=== PATIENT | female | born 1965 | race Caucasian/White ===

== ENCOUNTER 2020-01-03 11:55 | Emergency (ER) | payer BC ==
[2020-01-03 12:10] VITALS: BP 146/85; PULSE 81
[2020-01-03] MEDS ORDERED: Sodium Chloride 0.9% 10 ML Syringe FLUSH PRN (12:18)
--- NOTE | 2020-01-03 12:27 | EDM.PDOC ---
ED HPI GENERAL MEDICAL PROBLEM - General Chief Complaint: Chest Pain Stated Complaint: CHEST PAINS-COVID POSITIVE Time Seen by Provider: 01/03/20 12:10 Source of Information: Reports: Patient, Old Records, RN, RN Notes Reviewed History Limitations: Reports: No Limitations - History of Present Illness INITIAL COMMENTS - FREE TEXT/NARRATIVE: 54 y.o female confirmed COVID positive in clinic last week now presents to the ER from home by POV with c/o upper chest pain & burning that began two days ago. Pt states the pain is located at the upper central chest and is intermittent in nature. The pain radiates to the upper back and she also has the sensation of pain and burning in the lungs. She has a productive cough with green/yellow sputum. Pt reports she has had similar chest pain before from bronchitis. She has been using her Albuterol inhaler some, and taking Tylenol for pain. 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 Chest Pain Score (Numeric/FACES): 8 - Related Data Allergies Allergy/AdvReac Type Severity Reaction Status Date / Time amoxicillin [Amoxicillin] Allergy Hives Verified 01/03/20 12:10 amoxicillin trihydrate Allergy Hives Verified 01/03/20 12:10 [From Augmentin] hydrocodone bitartrate Allergy Hives Verified 01/03/20 12:10 [From Lorcet 10] Latex, Natural Rubber Allergy Difficulty Verified 01/03/20 12:10 Breathing potassium clavulanate Allergy Hives Verified 01/03/20 12:10 [From Augmentin] Sulfa (Sulfonamide Allergy Hives Verified 01/03/20 12:10 Antibiotics) sumatriptan [From Imitrex] Allergy Cannot Verified 01/03/20 12:10 Remember sumatriptan succinate Allergy Cannot Verified 01/03/20 12:10 [From Imitrex] Remember plastic tape Allergy Blisters Uncoded 01/03/20 12:10 Home Meds: Home Meds Loratadine [Claritin] 10 mg PO DAILY 05/28/13 [History] metFORMIN [Glucophage] 500 mg PO QID 05/28/13 [History] Ascorbic Acid [Vitamin C] 1,000 mg PO DAILY 07/18/14 [History] Aspirin [[place] Aspirin] 81 mg PO DAILY 07/18/14 [History] Calcium Carb/D3/Magnesium/Zinc [Wwnnauh-Iad-Xbju-Vit D] 1 tab PO DAILY 07/18/14 [History] Losartan [Cozaar] 25 mg PO BID 05/30/16 [History] Albuterol Sulfate [Albuterol Sulfate Hfa] 2 puff IH Q4HR PRN 01/03/20 [History] Betamethasone/Clotrimazole [Lotrisone] 15 gm TOP BID 01/03/20 [History] Cyclobenzaprine [Flexeril] 10 mg PO Q8HR PRN 01/03/20 [History] Magnesium Oxide [Mag-Oxide] 241.3 mg PO DAILY 01/03/20 [History] Omeprazole Magnesium [Prilosec Otc] 20 mg PO DAILY 01/03/20 [History] Rosuvastatin [Crestor] 2.5 mg PO ASDIRECTED 01/03/20 [History] Tolterodine [Detrol] 2 mg PO BID 01/03/20 [History] sitaGLIPtin Phosphate [Januvia] 50 mg PO DAILY 01/03/20 [History] Past Medical History HEENT History: Reports: Cataract Cardiovascular History: Reports: High Cholesterol, Hypertension Respiratory History: Reports: Asthma, Bronchitis, Recurrent, COPD Gastrointestinal History: Reports: Diverticulosis, Hemorrhoids, Hiatal Hernia Genitourinary History: Reports: Other (See Below) Other Genitourinary History: Status post microscopic hematuria. Bladder sling repair Neurological History: Reports: Migraines Psychiatric History: Reports: Anxiety Endocrine/Metabolic History: Reports: Diabetes, Type II, Obesity/BMI 30+ Hematologic History: Reports: None Immunologic History: Reports: None Oncologic (Cancer) History: Reports: None Other Dermatologic History: allergy to plastic tape - Infectious Disease History Infectious Disease History: Reports: Chicken Pox - Past Surgical History HEENT Surgical History: Reports: Tonsillectomy Other HEENT Surgeries/Procedures: closed reduction nasal fx. Cardiovascular Surgical History: Reports: None Respiratory Surgical History: Reports: None GI Surgical History: Reports: Appendectomy, Cholecystectomy Female Surgical History: Reports: Section, Other (See Below) Musculoskeletal Surgical History: Reports: Arthroscopic Knee, Shoulder Surgery Social & Family History - Family History Family Medical History: Noncontributory - Tobacco Use Smoking Status *Q: Never Smoker Second Hand Smoke Exposure: No - Caffeine Use Caffeine Use: Reports: Soda Other Caffeine Use: one every other day - Recreational Drug Use Recreational Drug Use: No - Living Situation & Occupation Living situation: Reports: with Family Occupation: Employed ED ROS GENERAL - Review of Systems Review Of Systems: Comprehensive ROS is negative, except as noted in HPI. ED EXAM, GENERAL - Physical Exam Exam: See Below Exam Limited By: No Limitations General Appearance: Alert, No Apparent Distress, Obese Eye Exam: Bilateral Eye: Normal Inspection Ears: Normal External Exam, Normal Canal, Hearing Grossly Normal, Normal TMs Nose: Normal Inspection, Normal Mucosa, No Blood Throat/Mouth: Normal Lips, Normal Voice, No Airway Compromise, Other (Dry oral mucosa) Head: Atraumatic, Normocephalic Neck: Normal Inspection, Supple, Non-Tender, Full Range of Motion Respiratory/Chest: No Respiratory Distress, Lungs Clear, Normal Breath Sounds, No Accessory Muscle Use, Chest Non-Tender Cardiovascular: Regular Rate, Rhythm, Tachycardia GI/Abdominal: Normal Bowel Sounds, Soft, Non-Tender, Other (Benign obese abdomen) (Female) Exam: Deferred Rectal (Female) Exam: Deferred Back Exam: Normal Inspection Extremities: Normal Inspection Neurological: Alert, Oriented, No Motor/Sensory Deficits Psychiatric: Normal Mood Skin Exam: Warm, Dry, Intact, Normal Color, No Rash EKG INTERPRETATION EKG Date: 01/03/20 Time: 12:35 Rhythm: Other (SR) Rate (Beats/Min): 74 Novice: Normal P-Wave: Present QRS: Other (Early R/S transition, LVH) ST-T: Normal QT: Normal Comparison: NA - No Prior EKG Course - Vital Signs Last Recorded V/S: Last Vital Signs Temp 98.3 F 01/03/20 12:06 Pulse 81 01/03/20 12:06 Resp 18 01/03/20 12:06 BP 146/85 H 01/03/20 12:06 Pulse Ox 99 01/03/20 12:06 - Orders/Labs/Meds Orders: Active Orders 24 hr Category Date Time Status EKG 12 Lead [EKG Documentation Completion] [RC] STAT Care 01/03/20 12:07 Active Peripheral IV Care [RC] . DIRECTED Care 01/03/20 12:19 Active Chest wo Cont [CT] Urgent Exams 01/03/20 13:35 Ordered CULTURE BLOOD [BC] Stat Lab 01/03/20 12:28 Received Sodium Chloride 0.9% [Saline Flush] Med 01/03/20 12:18 Active 10 ml FLUSH ASDIRECTED PRN Peripheral IV Insertion Adult [OM.PC] Stat Oth 01/03/20 12:18 Ordered Medication Orders Sodium Chloride (Saline Flush) 10 ml FLUSH ASDIRECTED PRN PRN Reason: Keep Vein Open Last Admin: 01/03/20 12:30 Dose: 10 ml Documented by: HILARY Labs: Laboratory Tests 01/03/20 01/03/20 01/03/20 Range/Units 12:28 12:28 12:28 WBC 5.1 (5.0-10.0) 10^3/uL RBC 4.40 (4.2-5.4) 10^6/uL Hgb 13.0 D (12.0-16.0) g/dL Hct 38.9 (37.0-47.0) % MCV 88.4 (80-100) fL MCH 29.5 (27.0-34.0) pg MCHC 33.4 (33.0-35.0) g/dL Plt Count 143 L (150-450) 10^3/uL Neut % (Auto) 59.3 (42.2-75.2) % Lymph % (Auto) 30.0 (20.5-50.1) % [place] % (Auto) 8.1 H (2-8) % Eos % (Auto) 2.4 (1.0-3.0) % Baso % (Auto) 0.2 (0.0-1.0) % PT 9.9 (9.0-12.0) SEC INR 1.0 (0.9-1.2) APTT 25.7 (22.0-34.0) SEC D-Dimer, Quantitative 107 (0-400) ng/mL Sodium 140 (136-145) mmol/L Potassium 4.0 (3.5-5.1) mmol/L Chloride 104 (98-107) mmol/L Carbon Dioxide 25 (21-32) mmol/L Anion Gap 15.0 H (7-13) mEq/L BUN 19 H (7-18) mg/dL Creatinine 0.98 (0.55-1.02) mg/dL Est Cr Clr Drug Dosing 56.01 mL/min Estimated GFR (MDRD) 59 BUN/Creatinine Ratio 19.4 (No establ ref range) Glucose 152 H (74-99) mg/dL Lactic Acid (0.4-2.0) mmol/L Calcium 9.0 (8.5-10.1) mg/dL Total Bilirubin 0.4 (0.2-1.0) mg/dL AST 30 (15-37) U/L ALT 46 (14-59) U/L Alkaline Phosphatase 75 (46-116) U/L Troponin I < 0.017 (0.000-0.056) ng/mL Total Protein 7.9 (6.4-8.2) g/dL Albumin 3.9 (3.4-5.0) g/dL Globulin 4.0 Albumin/Globulin Ratio 1.0 09/08/20 Range/Units 12:28 WBC (5.0-10.0) 10^3/uL RBC (4.2-5.4) 10^6/uL Hgb (12.0-16.0) g/dL Hct (37.0-47.0) % MCV (80-100) fL MCH (27.0-34.0) pg MCHC (33.0-35.0) g/dL Plt Count (150-450) 10^3/uL Neut % (Auto) (42.2-75.2) % Lymph % (Auto) (20.5-50.1) % [place] % (Auto) (2-8) % Eos % (Auto) (1.0-3.0) % Baso % (Auto) (0.0-1.0) % PT (9.0-12.0) SEC INR (0.9-1.2) APTT (22.0-34.0) SEC D-Dimer, Quantitative (0-400) ng/mL Sodium (136-145) mmol/L Potassium (3.5-5.1) mmol/L Chloride (98-107) mmol/L Carbon Dioxide (21-32) mmol/L Anion Gap (7-13) mEq/L BUN (7-18) mg/dL Creatinine (0.55-1.02) mg/dL Est Cr Clr Drug Dosing mL/min Estimated GFR (MDRD) BUN/Creatinine Ratio (No establ ref range) Glucose (74-99) mg/dL Lactic Acid 1.8 (0.4-2.0) mmol/L Calcium (8.5-10.1) mg/dL Total Bilirubin (0.2-1.0) mg/dL AST (15-37) U/L ALT (14-59) U/L Alkaline Phosphatase (46-116) U/L Troponin I (0.000-0.056) ng/mL Total Protein (6.4-8.2) g/dL Albumin (3.4-5.0) g/dL Globulin Albumin/Globulin Ratio Meds: Medications Generic Name Dose Route Start Last Admin Trade Name Freq PRN Reason Stop Dose Admin Sodium Chloride 10 ml 01/03/20 12:18 01/03/20 12:30 Saline Flush FLUSH 10 ml ASDIRECTED PRN Administration Keep Vein Open - Radiology Interpretation Free Text/Narrative:: CT Chest: no severe changes associated with COVID, see Rad. report. - Re-Assessments/Exams Free Text/Narrative Re-Assessment/Exam: 01/03/20 14:12 Clinically the pt is tolerating COVID very well, labs and chest CT look remarkably good given her comorbidities. Plan to d/c home for continued symptomatic care. Departure - Departure Time of Disposition: 14:08 Disposition: Home, Self-Care 01 Condition: Good Clinical Impression: COVID-19 - Discharge Information *PRESCRIPTION DRUG MONITORING PROGRAM REVIEWED*: Not Applicable *COPY OF PRESCRIPTION DRUG MONITORING REPORT IN PATIENT ISIDRA: Not Applicable Instructions: COVID-19 Frequently Asked Questions, Prevent the Spread of COVID- 19 if You Are Sick - [facility] Forms: ED Department Discharge Additional Instructions: Self quarantine at home. Symptomatic treatment as needed, Tylenol, Albuterol inhaler, stay active in your house. Call 911 if you develop difficulty breathing. Sepsis Event Note (ED) - Evaluation Sepsis Screening Result: No Definite Risk - Focused Exam Vital Signs: Vital Signs Temp Pulse Resp BP Pulse Ox 01/03/20 12:06 98.3 F 81 18 146/85 H 99 - My Orders Last 24 Hours: My Active Orders 01/03/20 12:07 EKG 12 Lead [EKG Documentation Completion] [RC] STAT 01/03/20 12:18 Sodium Chloride 0.9% [Saline Flush] 10 ml FLUSH ASDIRECTED PRN Peripheral IV Insertion Adult [OM.PC] Stat 01/03/20 12:19 Peripheral IV Care [RC] . DIRECTED 01/03/20 12:28 CULTURE BLOOD [BC] Stat 01/03/20 13:35 Chest wo Cont [CT] Urgent - Assessment/Plan Last 24 Hours: My Active Orders 01/03/20 12:07 EKG 12 Lead [EKG Documentation Completion] [RC] STAT 01/03/20 12:18 Sodium Chloride 0.9% [Saline Flush] 10 ml FLUSH ASDIRECTED PRN Peripheral IV Insertion Adult [OM.PC] Stat 01/03/20 12:19 Peripheral IV Care [RC] . DIRECTED 01/03/20 12:28 CULTURE BLOOD [BC] Stat 01/03/20 13:35 Chest wo Cont [CT] Urgent
[2020-01-03 12:53] LABS: PTT,PARTIAL THROMBOPLSTIN TIME 25.7 SEC (22.0-34.0)
[2020-01-03 12:58] LABS: CHLORIDE,CL 104 mmol/L (98-107); SODIUM,NA 140 mmol/L (136-145)
--- NOTE | 2020-01-03 14:25 | CT ---
PROCEDURE INFORMATION: Exam: CT Chest Without Contrast Exam date and time: 01/03/2020 1:49 PM Age: 54 years old Clinical indication: Other: Covid +, chest pain, productive cough; Additional info: Covid, chest pain, productive cough TECHNIQUE: Imaging protocol: Computed tomography of the chest without contrast. Radiation optimization: All CT scans at this facility use at least one of these dose optimization techniques: automated exposure control; mA and/or kV adjustment per patient size (includes targeted exams where dose is matched to clinical indication); or iterative reconstruction. COMPARISON: CT Chest wo Cont 07/14/2014 2:27 PM FINDINGS: Tracheobronchial tree: Normal. Lungs: Scattered faint subcentimeter foci of ground-glass lung opacification, most easily seen in the left upper lobe but present as well and other lobes sparing the left lower lobe. Pleural space: Normal. Heart: Normal dimensions. No pericardial effusion. Coronary arteries: No calcification Aorta: Normal. Lymph nodes: No enlarged axillary, mediastinal or hilar lymph nodes. Bones/joints: Normal. Soft tissues: Normal. IMPRESSION: Patchy upper lobe dominant ground-glass opacification. Per the history, the patient is known to have tested positive for COVID-19 and these findings can be considered compatible with the associated viral pneumonia.
== END 2020-01-03 14:20 | disposition home or self-care (01) ==
LOC: DL.ED 11:55
DX: U07.1 COVID-19 (principal); R00.0 Tachycardia, unspecified; I10 Essential (primary) hypertension; J44.9 Chronic obstructive pulmonary disease, unspecified; E11.9 Type 2 diabetes mellitus without complications; E66.9 Obesity, unspecified; Z68.41 Body mass index [BMI] 40.0-44.9, adult; Z88.8 Allergy status to other drugs, medicaments and biological substances; Z88.1 Allergy status to other antibiotic agents; Z88.5 Allergy status to narcotic agent; Z91.040 Latex allergy status; Z88.2 Allergy status to sulfonamides; Z91.048 Other nonmedicinal substance allergy status; Z79.82 Long term (current) use of aspirin; Z79.899 Other long term (current) drug therapy
CPT/HCPCS: 36415; 71250; 80053; 83605; 84484; 85025; 85379; 85610; 85730; 87040; 93005; 99285-25

== ENCOUNTER 2020-01-17 10:31 | Emergency (ER) | payer BC ==
[2020-01-17] MEDS ORDERED: Albuterol/Ipratropium 3.0-0.5 MG/3 ML Neb Soln NEB ONE (12:27)
[2020-01-17 12:34] VITALS: PULSE 81
[2020-01-17] MEDS ORDERED: methylPREDNISolone Sodium Succinate 125 MG/2 ML SDV IVPUSH ONE (12:44)
[2020-01-17 13:15] LABS: ANION GAP 17.9 mEq/L (7-13)
--- NOTE | 2020-01-17 13:20 | CR ---
PROCEDURE INFORMATION: Exam: XR Chest, 1 View Exam date and time: 01/17/2020 1:15 PM Age: 54 years old Clinical indication: Chest pain TECHNIQUE: Imaging protocol: XR of the chest Views: 1 view. COMPARISON: CT Chest wo Cont, Chest wo Cont 01/03/2020 1:49 PM FINDINGS: Lungs: No lung consolidation or pulmonary edema. Pleural space: No pleural effusion or pneumothorax. Heart/Mediastinum: The cardiac silhouette is not enlarged. The mediastinal contours are normal. Bones/joints: Prior ORIF of a proximal right humeral fracture with side plate and screws. There are multilevel bridging osteophytes in the spine. IMPRESSION: No acute abnormality.
--- NOTE | 2020-01-17 13:21 | EDM.PDOC ---
ED HPI GENERAL MEDICAL PROBLEM - General Chief Complaint: Respiratory Problem Stated Complaint: pneumonia Time Seen by Provider: 01/17/20 12:50 Source of Information: Reports: Patient, RN, RN Notes Reviewed History Limitations: Reports: No Limitations - History of Present Illness INITIAL COMMENTS - FREE TEXT/NARRATIVE: Patient presents to ER with complaint of shortness of breath and wheezing. Patient was COVID positive on 01/04/2020. She was released from quarantine on 01/14/2020. Patient states she went back to work on Thursday, and worked an extra shift. She states she did see her primary care provider on Thursday. States she was told she had a right lung pneumonia possibly a left lung pneumonia. Patient was started on azithromycin and prednisone, she does have an albuterol inhaler but is unable to take a deep breath to use the inhaler. She states she has become more short of breath since she went back to work. States she has had a cough and positive for green sputum. Denies fever, chills, nausea, vomiting, diarrhea. Oxygen saturation is 96 to 100% on room air. Patient has audible wheezing, sounds to be coming from the oropharynx, as the lung sounds are clear. Onset: Gradual Upper Chest Pain Score (Numeric/FACES): 5 - Related Data Allergies Allergy/AdvReac Type Severity Reaction Status Date / Time amoxicillin [Amoxicillin] Allergy Hives Verified 01/17/20 11:03 amoxicillin trihydrate Allergy Hives Verified 01/17/20 11:03 [From Augmentin] hydrocodone bitartrate Allergy Hives Verified 01/17/20 11:03 [From Lorcet [id number]] Latex, Natural Rubber Allergy Difficulty Verified 01/17/20 11:03 Breathing potassium clavulanate Allergy Hives Verified 01/17/20 11:03 [From Augmentin] Sulfa (Sulfonamide Allergy Hives Verified 01/17/20 11:03 Antibiotics) sumatriptan [From Imitrex] Allergy Cannot Verified 01/17/20 11:03 Remember sumatriptan succinate Allergy Cannot Verified 01/17/20 11:03 [From Imitrex] Remember plastic tape Allergy Blisters Uncoded 01/17/20 11:03 Home Meds: Home Meds Loratadine [Claritin] 10 mg PO DAILY 05/28/13 [History] metFORMIN [Glucophage] 500 mg PO QID 05/28/13 [History] Ascorbic Acid [Vitamin C] 1,000 mg PO DAILY 07/18/14 [History] Aspirin [[place] Aspirin] 81 mg PO DAILY 07/18/14 [History] Calcium Carb/D3/Magnesium/Zinc [Monawgp-Rhb-Bjmd-Vit D] 1 tab PO DAILY 07/18/14 [History] Losartan [Cozaar] 25 mg PO BID 05/30/16 [History] Albuterol Sulfate [Albuterol Sulfate Hfa] 2 puff IH Q4HR PRN 01/03/20 [History] Betamethasone/Clotrimazole [Lotrisone] 15 gm TOP BID 01/03/20 [History] Cyclobenzaprine [Flexeril] 10 mg PO Q8HR PRN 01/03/20 [History] Magnesium Oxide [Mag-Oxide] 241.3 mg PO DAILY 01/03/20 [History] Omeprazole Magnesium [Prilosec Otc] 20 mg PO DAILY 01/03/20 [History] Rosuvastatin [Crestor] 2.5 mg PO ASDIRECTED 01/03/20 [History] Tolterodine [Detrol] 2 mg PO BID 01/03/20 [History] sitaGLIPtin Phosphate [Januvia] 50 mg PO DAILY 01/03/20 [History] Past Medical History HEENT History: Reports: Cataract Cardiovascular History: Reports: High Cholesterol, Hypertension Respiratory History: Reports: Asthma, Bronchitis, Recurrent, COPD Gastrointestinal History: Reports: Diverticulosis, Hemorrhoids, Hiatal Hernia Genitourinary History: Reports: Other (See Below) Other Genitourinary History: Status post microscopic hematuria. Bladder sling repair Neurological History: Reports: Migraines Psychiatric History: Reports: Anxiety Endocrine/Metabolic History: Reports: Diabetes, Type II, Obesity/BMI 30+ Hematologic History: Reports: None Immunologic History: Reports: None Oncologic (Cancer) History: Reports: None Other Dermatologic History: allergy to plastic tape - Infectious Disease History Infectious Disease History: Reports: Chicken Pox - Past Surgical History HEENT Surgical History: Reports: Tonsillectomy Other HEENT Surgeries/Procedures: closed reduction nasal fx. Cardiovascular Surgical History: Reports: None Respiratory Surgical History: Reports: None GI Surgical History: Reports: Appendectomy, Cholecystectomy Female Surgical History: Reports: Section, Other (See Below) Musculoskeletal Surgical History: Reports: Arthroscopic Knee, Shoulder Surgery Social & Family History - Family History Family Medical History: Noncontributory - Tobacco Use Smoking Status *Q: Never Smoker Second Hand Smoke Exposure: No - Caffeine Use Caffeine Use: Reports: None Other Caffeine Use: one every other day - Recreational Drug Use Recreational Drug Use: No - Living Situation & Occupation Living situation: Reports: with Family Occupation: Employed ED ROS GENERAL - Review of Systems Review Of Systems: Comprehensive ROS is negative, except as noted in HPI. ED EXAM, GENERAL - Physical Exam Exam: See Below Exam Limited By: No Limitations General Appearance: Alert, WD/WN, Mild Distress Eye Exam: Bilateral Eye: EOMI, Normal Inspection Ears: Normal External Exam, Hearing Grossly Normal Nose: Normal Inspection Throat/Mouth: Normal Inspection, Normal Lips, Normal Teeth, Normal Gums, Normal Oropharynx, Normal Voice, No Airway Compromise Head: Atraumatic, Normocephalic Neck: Normal Inspection, Supple, Non-Tender, Full Range of Motion Respiratory/Chest: No Respiratory Distress, Lungs Clear, No Accessory Muscle Use, Chest Non-Tender, Decreased Breath Sounds Cardiovascular: Normal Peripheral Pulses, Regular Rate, Rhythm, No Edema, No Gallop, No JVD, No Murmur, No Rub Peripheral Pulses: 2+: Radial (L), Radial (R) GI/Abdominal: Normal Bowel Sounds, Soft, Non-Tender (Female) Exam: Deferred Rectal (Female) Exam: Deferred Back Exam: Normal Inspection, Full Range of Motion, NT Extremities: Normal Inspection, Normal Range of Motion, Non-Tender, Normal Capillary Refill, No Pedal Edema Neurological: Alert, Oriented, CN II-XII Intact, Normal Cognition, Normal Gait, Normal Reflexes, No Motor/Sensory Deficits Psychiatric: Normal Affect, Normal Mood, Anxious Skin Exam: Warm, Dry, Intact, Normal Color, No Rash Lymphatic: No Adenopathy Course - Vital Signs Last Recorded V/S: Last Vital Signs Temp 98.5 F 01/17/20 11:03 Pulse 81 01/17/20 12:28 Resp 20 01/17/20 11:03 BP Pulse Ox 97 01/17/20 12:28 - Orders/Labs/Meds Labs: Laboratory Tests 01/17/20 01/17/20 Range/Units 12:39 12:39 WBC 9.1 (5.0-10.0) 10^3/uL RBC 4.42 (4.2-5.4) 10^6/uL Hgb 12.9 (12.0-16.0) g/dL Hct 38.9 (37.0-47.0) % MCV 88.0 (80-100) fL MCH 29.2 (27.0-34.0) pg MCHC 33.2 (33.0-35.0) g/dL Plt Count 243 D (150-450) 10^3/uL Neut % (Auto) 82.5 H (42.2-75.2) % Lymph % (Auto) 14.4 L (20.5-50.1) % [place] % (Auto) 2.7 (2-8) % Eos % (Auto) 0.2 L (1.0-3.0) % Baso % (Auto) 0.2 (0.0-1.0) % Sodium 140 (136-145) mmol/L Potassium 4.9 (3.5-5.1) mmol/L Chloride 103 (98-107) mmol/L Carbon Dioxide 24 (21-32) mmol/L Anion Gap 17.9 H (7-13) mEq/L BUN 19 H (7-18) mg/dL Creatinine 1.14 H (0.55-1.02) mg/dL Est Cr Clr Drug Dosing 48.15 mL/min Estimated GFR (MDRD) 49 BUN/Creatinine Ratio 16.7 (No establ ref range) Glucose 291 H (74-99) mg/dL Calcium 9.8 (8.5-10.1) mg/dL Total Bilirubin 0.5 (0.2-1.0) mg/dL AST 31 (15-37) U/L ALT 47 (14-59) U/L Alkaline Phosphatase 73 (46-116) U/L Total Protein 7.9 (6.4-8.2) g/dL Albumin 3.9 (3.4-5.0) g/dL Globulin 4.0 Albumin/Globulin Ratio 1.0 Meds: Medications Discontinued Medications Generic Name Dose Route Start Last Admin Trade Name Freq PRN Reason Stop Dose Admin Albuterol/Ipratropium 3 ml 01/17/20 12:27 01/17/20 12:33 Duoneb 3.0-0.5 Mg/3 Ml NEB 01/17/20 12:28 3 ml ONETIME ONE Administration Levofloxacin/Dextrose 500 mg/ 100 mls @ 100 mls/hr 01/17/20 13:42 01/17/20 13:54 Premix IV 01/17/20 14:41 100 mls/hr ONETIME ONE Administration Methylprednisolone Sodium Succinate 125 mg 01/17/20 12:44 01/17/20 13:02 Solu-Medrol IVPUSH 01/17/20 12:45 125 mg ONETIME ONE Administration Departure - Departure Time of Disposition: 15:12 Disposition: Home, Self-Care 01 Condition: Fair Clinical Impression: Pneumonia Qualifiers: Pneumonia type: due to unspecified organism Laterality: unspecified laterality Lung location: unspecified part of lung Qualified Code(s): J18.9 - Pneumonia, unspecified organism - Discharge Information *PRESCRIPTION DRUG MONITORING PROGRAM REVIEWED*: No *COPY OF PRESCRIPTION DRUG MONITORING REPORT IN PATIENT ISIDRA: No Instructions: Shortness of Breath, Adult, [id number], Community-Acquired Pneumonia, Adult, [id number] Referrals: PCP,Unknown [Ordering Only Provider] - Forms: ED Department Discharge Additional Instructions: Continue taking Medrol Dosepak at home Continue taking antibiotics Continue using albuterol inhaler as directed May use Tylenol as directed for pain Follow-up with your primary care provider Rest, do not return to work until next week Sepsis Event Note (ED) - Evaluation Sepsis Screening Result: No Definite Risk
[2020-01-17] MEDS ORDERED: Levofloxacin/Dextrose 5%-Water 500 MG in Premix Bag 1 BAG IV ONE (13:42)
== END 2020-01-17 15:10 | disposition home or self-care (01) ==
LOC: DL.ED 10:31
DX: J18.9 Pneumonia, unspecified organism (principal); J44.9 Chronic obstructive pulmonary disease, unspecified; E78.00 Pure hypercholesterolemia, unspecified; I10 Essential (primary) hypertension; E11.9 Type 2 diabetes mellitus without complications; E66.9 Obesity, unspecified; Z68.43 Body mass index [BMI] 50.0-59.9, adult; Z88.1 Allergy status to other antibiotic agents; Z88.5 Allergy status to narcotic agent; Z91.040 Latex allergy status; Z88.8 Allergy status to other drugs, medicaments and biological substances; Z88.2 Allergy status to sulfonamides; Z91.048 Other nonmedicinal substance allergy status
CPT/HCPCS: 36415; 71045; 80053; 85025; 94640; 96365; 96375; 99283; 99285; J1956; J2930; J7620-GY

== ENCOUNTER 2020-12-06 21:33 | Emergency (ER) | payer BC ==
[2020-12-06] MEDS ORDERED: Lidocaine 2% with EPINEPHrine 1:200,000 20 ML SDV INJECT ONE (21:44)
[2020-12-06 22:01] VITALS: BP 128/74; PULSE 80
--- NOTE | 2020-12-06 22:05 | EDM.PDOC ---
ED HPI GENERAL MEDICAL PROBLEM - General Chief Complaint: Head Injury Stated Complaint: SLIPPED AND FELL HEAD BLEEDING CUT HEAD Time Seen by Provider: 12/06/20 21:45 Source of Information: Reports: Patient History Limitations: Reports: No Limitations - History of Present Illness INITIAL COMMENTS - FREE TEXT/NARRATIVE: This 55 yo female patient reports to the ED due to a ground level fall, a cut on her head and pain to her left knee and left hip. The patient reports she slipped on some water on her floor and hit her head on the register. The patent denies any loss of consciousness before, during or after the fall. The patient arrived with an ice pack wrapped in a towel to control swelling/bleeding. Onset: Today Duration: Minutes: Location: Reports: Head, Lower Extremity, Left Quality: Reports: Ache, Dull Severity: Moderate Worsens with: Reports: None Context: Reports: Activity Associated Symptoms: Reports: No Other Symptoms - Related Data Allergies Allergy/AdvReac Type Severity Reaction Status Date / Time amoxicillin [Amoxicillin] Allergy Hives Verified 01/17/20 11:03 amoxicillin trihydrate Allergy Hives Verified 01/17/20 11:03 [From Augmentin] hydrocodone bitartrate Allergy Hives Verified 01/17/20 11:03 [From Lorcet [id number]] Latex, Natural Rubber Allergy Difficulty Verified 01/17/20 11:03 Breathing potassium clavulanate Allergy Hives Verified 01/17/20 11:03 [From Augmentin] Sulfa (Sulfonamide Allergy Hives Verified 01/17/20 11:03 Antibiotics) sumatriptan [From Imitrex] Allergy Cannot Verified 01/17/20 11:03 Remember sumatriptan succinate Allergy Cannot Verified 01/17/20 11:03 [From Imitrex] Remember plastic tape Allergy Blisters Uncoded 01/17/20 11:03 Home Meds: Home Meds Loratadine [Claritin] 10 mg PO DAILY 05/28/13 [History] metFORMIN [Glucophage] 500 mg PO QID 05/28/13 [History] Ascorbic Acid [Vitamin C] 1,000 mg PO DAILY 07/18/14 [History] Aspirin [Fallis Aspirin] 81 mg PO DAILY 07/18/14 [History] Calcium Carb/D3/Magnesium/Zinc [Orjbrhu-Wce-Iglz-Vit D] 1 tab PO DAILY 07/18/14 [History] Losartan [Cozaar] 25 mg PO BID 05/30/16 [History] Albuterol Sulfate [Albuterol Sulfate Hfa] 2 puff IH Q4HR PRN 01/03/20 [History] Betamethasone/Clotrimazole [Lotrisone] 15 gm TOP BID 01/03/20 [History] Cyclobenzaprine [Flexeril] 10 mg PO Q8HR PRN 01/03/20 [History] Magnesium Oxide [Mag-Oxide] 241.3 mg PO DAILY 01/03/20 [History] Omeprazole Magnesium [Prilosec Otc] 20 mg PO DAILY 01/03/20 [History] Rosuvastatin [Crestor] 2.5 mg PO ASDIRECTED 01/03/20 [History] Tolterodine [Detrol] 2 mg PO BID 01/03/20 [History] sitaGLIPtin Phosphate [Januvia] 50 mg PO DAILY 01/03/20 [History] Past Medical History HEENT History: Reports: Cataract Cardiovascular History: Reports: High Cholesterol, Hypertension Respiratory History: Reports: Asthma, Bronchitis, Recurrent, COPD Gastrointestinal History: Reports: Diverticulosis, Hemorrhoids, Hiatal Hernia Genitourinary History: Reports: Other (See Below) Other Genitourinary History: Status post microscopic hematuria. Bladder sling repair Neurological History: Reports: Migraines Psychiatric History: Reports: Anxiety Endocrine/Metabolic History: Reports: Diabetes, Type II, Obesity/BMI 30+ Hematologic History: Reports: None Immunologic History: Reports: None Oncologic (Cancer) History: Reports: None Other Dermatologic History: allergy to plastic tape - Infectious Disease History Infectious Disease History: Reports: Chicken Pox - Past Surgical History HEENT Surgical History: Reports: Tonsillectomy Other HEENT Surgeries/Procedures: closed reduction nasal fx. Cardiovascular Surgical History: Reports: None Respiratory Surgical History: Reports: None GI Surgical History: Reports: Appendectomy, Cholecystectomy Female Surgical History: Reports: Section, Other (See Below) Other Female Surgeries/Procedures: Cystoscopy Musculoskeletal Surgical History: Reports: Arthroscopic Knee, Shoulder Surgery Other Musculoskeletal Surgeries/Procedures:: Multiple joint surgical procedures. Breast Biopsy--Benign. shoulder rotator cuff x3 Social & Family History - Family History Family Medical History: No Pertinent Family History - Caffeine Use Caffeine Use: Reports: None Other Caffeine Use: one every other day - Living Situation & Occupation Living situation: Reports: with Family Occupation: Employed ED ROS GENERAL - Review of Systems Review Of Systems: Comprehensive ROS is negative, except as noted in HPI. ED EXAM, HEAD INJURY - Physical Exam Exam: See Below Exam Limited By: No Limitations General Appearance: Alert, WD/WN, Mild Distress Head: Scalp Lacerations Nexus Criteria: No: Posterior, Midline Cervical Tenderness, Evidence of Intoxication, Altered Level of Consciousness, Focal Neurological Deficit, Painful Distraction Injuries Eyes: Bilateral Eye: EOMI, Normal Inspection, PERRL Ears: Normal External Exam, Normal Canal, Hearing Grossly Normal, Normal TMs Nose: Normal Inspection, Normal Mucousa, No Blood Throat/Mouth: Normal Inspection, Normal Lips, Normal Teeth, Normal Gums, Normal Oropharynx, Normal Voice, No Airway Compromise Neck: Non-Tender, Full Range of Motion, Normal Alignment, Normal Inspection Respiratory: No Respiratory Distress, Lungs Clear, Normal Breath Sounds, No Accessory Muscle Use, Chest Non-Tender Cardiovascular: Normal Peripheral Pulses, Regular Rate, Rhythm, No Edema, No Gallop, No JVD, No Murmur, No Rub GI/Abdominal Exam: Normal Bowel Sounds, Soft, Non-Tender, No Organomegaly, No Distention, No Abnormal Bruit, No Mass (Female) Exam: Deferred Rectal (Female) Exam: Deferred Back Exam: Full Range of Motion, Normal Inspection, NT Extremities: Leg Pain (left hip and knee pain (patient was able to ambulate into the ED)) 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, No Motor/Sensory Deficits, Alert, Normal Mood/Affect, Oriented x 3 Skin: Normal Color, Warm/Dry ED LACERATION/WOUND & DOC PROC - Laceration/Wound Repair Right Posterior Head Lac/wound length in cm: 1.0 Appearance: Subcutaneous Local Anesthesia - Lidocaine (Xylocaine): 2% with EPI Local Anesthetic Volume: 2cc Skin Prep: Chlorhexidine (Hibiciens) Exploration/Debridement/Repair: Wound Explored Closed with: Sutures Suture Size: 3-0 # of Sutures: 2 Suture Type: Prolene, Interrupted, Simple Drain Placement: No Sterile Dressing Applied: None Tetanus Status Addressed: Yes Complications: No Course - Vital Signs Last Recorded V/S: Last Vital Signs Temp 97.1 F 12/06/20 21:53 Pulse 80 12/06/20 21:53 Resp 18 12/06/20 21:53 BP 128/74 08/12/21 21:53 Pulse Ox 98 12/06/20 21:53 - Orders/Labs/Meds Meds: Medications Discontinued Medications Generic Name Dose Route Start Last Admin Trade Name Constantine PRN Reason Stop Dose Admin Lidocaine/Epinephrine 20 ml 12/06/20 21:44 12/06/20 21:53 Lidocaine 2% With Epinephrine 1:200,000 20 Ml Sdv INJECT 12/06/20 21:45 20 ml ONETIME ONE Administration - Radiology Interpretation Free Text/Narrative:: [facility] Final Radiology Report Call: [phone] assistance Online chat: [email or web address] Name: STERLING GALLEGOS Age: 55Years F Date: 12/06/2020 SSN: -- : 1965 Study: CR HIP MIN 2V OR 3V W PELVIS LT Requesting Physician: Christopher Cobb Images: 2 Addl Studies: Provided Clinical History: Ground level fall Contrast: Contrast Medium: Contrast Amount: Contrast Method: CONFIDENTIALITY STATEMENT This report is intended only for use by the referring physician, and only in accordance with law. If you received this in error, call [phone]. Page 1 of 1 PROCEDURE INFORMATION: Exam: XR Left Hip Exam date and time: 12/06/2020 10:16 PM Age: 55 years old Clinical indication: Other: Fall/pain; Additional info: Ground level fall TECHNIQUE: Imaging protocol: XR Left hip. Views: 2 or 3 views hip with pelvis when performed. COMPARISON: No relevant prior studies available. FINDINGS: Tubes, catheters and devices: Surgical clips are present at the symphysis pubis. Bones/joints: No acute fracture or dislocation. Soft tissues: Unremarkable. IMPRESSION: No acute fracture or dislocation. Thank you for allowing us to participate in the care of your patient. Dictated and Authenticated by: Eric Aguilar DO 12/06/2020 11:36 PM Central Time ([place] & [place]) [facility] Final Radiology Report Call: [phone] assistance Online chat: [email or web address] Name: STERLING GALLEGOS Age: 55Years F Date: 12/06/2020 SSN: -- : 1965 Study: CR KNEE 3V LT Requesting Physician: Christopher Cobb Images: 3 Addl Studies: Provided Clinical History: Ground level fall Contrast: Contrast Medium: Contrast Amount: Contrast Method: CONFIDENTIALITY STATEMENT This report is intended only for use by the referring physician, and only in accordance with law. If you received this in error, call [phone]. Page 1 of 1 PROCEDURE INFORMATION: Exam: XR Left Knee Exam date and time: 12/06/2020 10:19 PM Age: 55 years old Clinical indication: Other: Fall/pain; Additional info: Ground level fall TECHNIQUE: Imaging protocol: XR Left knee. Views: 3 views. COMPARISON: No relevant prior studies available. FINDINGS: Bones/joints: No acute fracture or dislocation. Soft tissues: Normal. IMPRESSION: No acute fracture or dislocation. Thank you for allowing us to participate in the care of your patient. Dictated and Authenticated by: Eric Aguilar DO 12/06/2020 11:36 PM Central Time ([place] & [place]) Departure - Departure Time of Disposition: 00:20 Disposition: Home, Self-Care 01 Condition: Fair Clinical Impression: Fall from ground level Scalp laceration Qualifiers: Encounter type: initial encounter Qualified Code(s): S01.01XA - Laceration without foreign body of scalp, initial encounter Knee contusion Qualifiers: Encounter type: initial encounter Laterality: left Qualified Code(s): S80.02XA - Contusion of left knee, initial encounter - Discharge Information *PRESCRIPTION DRUG MONITORING PROGRAM REVIEWED*: Not Applicable *COPY OF PRESCRIPTION DRUG MONITORING REPORT IN PATIENT ISIDRA: Not Applicable Instructions: Laceration Care, Adult, [id number], Contusion, [id number] Forms: ED Department Discharge Care Plan Goals: The patient was advised of the examination and x-ray results during the visit. The patient's head laceration margins were well approximated during the visit. The patient should keep the wound clean and dry over the next 24 hours. The patient should have the sutures removed in 10-14 days. The patient should ice her left hip and left knee. If the patient has any additional symptoms or concerns, the patient should either return to the emergency department or visit her primary care facility. Sepsis Event Note (ED) - Focused Exam Vital Signs: Vital Signs Temp Pulse Resp BP Pulse Ox 12/06/20 21:53 97.1 F 80 18 128/74 98
--- NOTE | 2020-12-06 23:36 | CR ---
PROCEDURE INFORMATION: Exam: XR Left Hip Exam date and time: 12/06/2020 10:16 PM Age: 55 years old Clinical indication: Other: Fall/pain; Additional info: Ground level fall TECHNIQUE: Imaging protocol: XR Left hip. Views: 2 or 3 views hip with pelvis when performed. COMPARISON: No relevant prior studies available. FINDINGS: Tubes, catheters and devices: Surgical clips are present at the symphysis pubis. Bones/joints: No acute fracture or dislocation. Soft tissues: Unremarkable. IMPRESSION: No acute fracture or dislocation.
--- NOTE | 2020-12-06 23:37 | CR ---
PROCEDURE INFORMATION: Exam: XR Left Knee Exam date and time: 12/06/2020 10:19 PM Age: 55 years old Clinical indication: Other: Fall/pain; Additional info: Ground level fall TECHNIQUE: Imaging protocol: XR Left knee. Views: 3 views. COMPARISON: No relevant prior studies available. FINDINGS: Bones/joints: No acute fracture or dislocation. Soft tissues: Normal. IMPRESSION: No acute fracture or dislocation.
--- NOTE | 2020-12-07 01:03 | CT ---
PROCEDURE INFORMATION: Exam: CT Head Without Contrast Exam date and time: 12/07/2020 12:36 AM Age: 55 years old Clinical indication: Other: Pain; Additional info: Ground level fall previous neck surgery TECHNIQUE: Imaging protocol: Computed tomography of the head without contrast. Radiation optimization: All CT scans at this facility use at least one of these dose optimization techniques: automated exposure control; mA and/or kV adjustment per patient size (includes targeted exams where dose is matched to clinical indication); or iterative reconstruction. COMPARISON: CT Head wo Cont 10/30/2014 8:40 PM FINDINGS: Brain: No acute infarct or hemorrhage. Cerebral ventricles: No ventriculomegaly. Paranasal sinuses: Paranasal sinuses are clear. No air-fluid level. Mastoid air cells: Visualized mastoid air cells are clear. Bones/joints: No calvarial or skull base fracture. Soft tissues: Unremarkable. IMPRESSION: 1. No acute infarct or hemorrhage. 2. No calvarial or skull base fracture.
--- NOTE | 2020-12-07 01:05 | CT ---
PROCEDURE INFORMATION: Exam: CT Cervical Spine Without Contrast Exam date and time: 12/07/2020 12:36 AM Age: 55 years old Clinical indication: Other: Pain; Additional info: Ground level fall previous neck surgery TECHNIQUE: Imaging protocol: Computed tomography images of the cervical spine without contrast. Radiation optimization: All CT scans at this facility use at least one of these dose optimization techniques: automated exposure control; mA and/or kV adjustment per patient size (includes targeted exams where dose is matched to clinical indication); or iterative reconstruction. COMPARISON: CT Cervical Spine wo Cont 10/30/2014 8:36 PM FINDINGS: Bones/joints: Click craniocervical; There is normal vertebral body alignment. There are normal vertebral body heights. Anterior fusion hardware C4-C5 and C5-C6. The dens is intact. The lateral masses of C1 are symmetric. No fracture. Discs/Spinal canal/Neural foramina: Atlantodental interval and prevertebral soft tissues are normal. Lungs: Lung apices are normal. Soft tissues: Unremarkable. IMPRESSION: 1. No fracture. 2. Anterior fusion hardware C4-C5 and C5-C6.
== END 2020-12-07 01:19 | disposition home or self-care (01) ==
LOC: DL.ED 21:33
DX: S01.01XA Laceration without foreign body of scalp, initial encounter (principal); S80.02XA Contusion of left knee, initial encounter; M25.552 Pain in left hip; E78.00 Pure hypercholesterolemia, unspecified; I10 Essential (primary) hypertension; J44.9 Chronic obstructive pulmonary disease, unspecified; E11.9 Type 2 diabetes mellitus without complications; E66.9 Obesity, unspecified; Z88.0 Allergy status to penicillin; Z88.5 Allergy status to narcotic agent; Z91.040 Latex allergy status; Z88.1 Allergy status to other antibiotic agents; Z88.2 Allergy status to sulfonamides; Z91.048 Other nonmedicinal substance allergy status; Z79.82 Long term (current) use of aspirin; Z79.84 Long term (current) use of oral hypoglycemic drugs; Z79.899 Other long term (current) drug therapy; W18.30XA Fall on same level, unspecified, initial encounter; W01.198A Fall on same level from slipping, tripping and stumbling with subsequent striking against other object, initial encounter
CPT/HCPCS: 12001; 70450; 72125; 73562-LT; 99283; 99284-25

== ENCOUNTER 2021-03-16 08:41 | Emergency (ER) | payer BC ==
[2021-03-16 09:17] VITALS: BP 143/97; PULSE 89
--- NOTE | 2021-03-16 10:30 | CT ---
PROCEDURE INFORMATION: Exam: CT Head Without Contrast Exam date and time: 03/16/2021 9:56 AM Age: 55 years old Clinical indication: Pain; Headache not specified; Additional info: Fell at work last night , pain, headache TECHNIQUE: Imaging protocol: Computed tomography of the head without contrast. Radiation optimization: All CT scans at this facility use at least one of these dose optimization techniques: automated exposure control; mA and/or kV adjustment per patient size (includes targeted exams where dose is matched to clinical indication); or iterative reconstruction. COMPARISON: CT Head wo Cont 12/07/2020 12:36 AM FINDINGS: Brain: Normal. No hemorrhage. Small chronic right basal ganglia lacune infarct. No mass effect. Cerebral ventricles: No ventriculomegaly. Paranasal sinuses: Visualized sinuses are unremarkable. No fluid levels. Mastoid air cells: Visualized mastoid air cells are well aerated. Bones/joints: Unremarkable. No acute fracture. Soft tissues: Unremarkable. IMPRESSION: No acute intracranial abnormality.
--- NOTE | 2021-03-16 10:33 | CT ---
PROCEDURE INFORMATION: Exam: CT Cervical Spine Without Contrast Exam date and time: 03/16/2021 9:56 AM Age: 55 years old Clinical indication: Neck pain; Prior surgery; Surgery date: 6+ months; Additional info: Fell at work last night , pain, headache TECHNIQUE: Imaging protocol: Computed tomography images of the cervical spine without contrast. Radiation optimization: All CT scans at this facility use at least one of these dose optimization techniques: automated exposure control; mA and/or kV adjustment per patient size (includes targeted exams where dose is matched to clinical indication); or iterative reconstruction. COMPARISON: CT Cervical Spine wo Cont 12/07/2020 12:36 AM FINDINGS: Vertebrae: Prior discectomy with anterior fusion C4 through C6. Alignment of the spine is normal. C2-C3: No significant disc protrusion. No severe spinal canal stenosis. No significant neural foraminal narrowing. C3-C4: No significant disc protrusion. No severe spinal canal stenosis. No significant neural foraminal narrowing. C4-C5: No significant disc protrusion. No severe spinal canal stenosis. No significant neural foraminal narrowing. C5-C6: No significant disc protrusion. No severe spinal canal stenosis. No significant neural foraminal narrowing. C6-C7: No significant disc protrusion. No severe spinal canal stenosis. No significant neural foraminal narrowing. C7-T1: No significant disc protrusion. No severe spinal canal stenosis. No significant neural foraminal narrowing. Soft tissues: Unremarkable. Lungs: Lung apices are normal. IMPRESSION: 1. No cervical fracture. 2. Stable discectomy and fusion C4 through C6.
--- NOTE | 2021-03-16 10:48 | CT ---
PROCEDURE INFORMATION: Exam: CT Lumbar Spine Without Contrast Exam date and time: 03/16/2021 9:56 AM Age: 55 years old Clinical indication: Low back pain; Additional info: Fell at work last night , pain, headache TECHNIQUE: Imaging protocol: Computed tomography images of the lumbar spine without contrast. Radiation optimization: All CT scans at this facility use at least one of these dose optimization techniques: automated exposure control; mA and/or kV adjustment per patient size (includes targeted exams where dose is matched to clinical indication); or iterative reconstruction. COMPARISON: CR Lumbar Spine 2 or 3V 05/28/2013 7:25 PM FINDINGS: Vertebrae: Anatomic alignment. No acute fracture of the lumbar spine identified. Diffuse osseous demineralization. There is moderate lower thoracic prevertebral spondylosis. Otherwise mild degenerative changes. No severe central spinal canal stenosis. Right foraminal bulging disc and facet arthropathy at L4-L5 causing moderate right neural foraminal stenosis. Sacrum/coccyx: [id number]-[id number]-[id number] degenerative changes of the sacroiliac joints. The sacrum is poorly evaluated given the presence of osseous demineralization as well as slight motion and patient body habitus resulting in limited beam penetration of the soft tissues at this level. A lucency is suggested across the S3 segment, sagittal image 44 of series 17 for example. Gallbladder and bile ducts: Cholecystectomy clips in the gallbladder fossa. Soft tissues: There is slight obscuration of the fat plane anterior to the sacrum at this level, feasibly mild soft tissue edema. IMPRESSION: 1. Possible nondisplaced acute fracture of the sacrum at the S3 level. Recommend MRI of the sacrum for further assessment, as needed for confirmation. 2. No lumbar spine fracture seen.
--- NOTE | 2021-03-16 11:06 | EDM.PDOC ---
ED HPI GENERAL MEDICAL PROBLEM - General Chief Complaint: Neck Problem Stated Complaint: FELL INJURED KNECK, SHOULDER, BACK Time Seen by Provider: 03/16/21 09:15 Source of Information: Reports: Patient History Limitations: Reports: No Limitations - History of Present Illness INITIAL COMMENTS - FREE TEXT/NARRATIVE: ED with c/o pain to back of head upper and lwer back. States last night whie at work was getting gloves out of cabinet while standing on step stool, As removing from cabinet, box got stuck on corner of cabinet and she tipped off stool, landing flat on back hitting head. Denied loss of consciousness. No numbness or tingling. Able to complete shift. Tylenol last around 600. Shoulder Pain Score (Numeric/FACES): 7 - Related Data Allergies Allergy/AdvReac Type Severity Reaction Status Date / Time amoxicillin [Amoxicillin] Allergy Hives Verified 03/16/21 09:05 amoxicillin trihydrate Allergy Hives Verified 03/16/21 09:05 [From Augmentin] hydrocodone bitartrate Allergy Hives Verified 03/16/21 09:05 [From Lorcet 10] Latex, Natural Rubber Allergy Difficulty Verified 03/16/21 09:05 Breathing potassium clavulanate Allergy Hives Verified 03/16/21 09:05 [From Augmentin] Sulfa (Sulfonamide Allergy Hives Verified 03/16/21 09:05 Antibiotics) sumatriptan [From Imitrex] Allergy Cannot Verified 03/16/21 09:05 Remember sumatriptan succinate Allergy Cannot Verified 03/16/21 09:05 [From Imitrex] Remember plastic tape Allergy Blisters Uncoded 01/17/20 11:03 Home Meds: Home Meds Loratadine [Claritin] 10 mg PO DAILY 05/28/13 [History] metFORMIN [Glucophage] 500 mg PO QID 05/28/13 [History] Ascorbic Acid [Vitamin C] 1,000 mg PO DAILY 07/18/14 [History] Aspirin [[place] Aspirin] 81 mg PO DAILY 07/18/14 [History] Calcium Carb/D3/Magnesium/Zinc [[id number]-Vit D] 1 tab PO DAILY 07/18/14 [History] Losartan [Cozaar] 25 mg PO BID 05/30/16 [History] Albuterol Sulfate [Albuterol Sulfate Hfa] 2 puff IH Q4HR PRN 01/03/20 [History] Betamethasone/Clotrimazole [Lotrisone] 15 gm TOP BID 01/03/20 [History] Cyclobenzaprine [Flexeril] 10 mg PO Q8HR PRN 01/03/20 [History] Magnesium Oxide [Mag-Oxide] 241.3 mg PO DAILY 01/03/20 [History] Omeprazole Magnesium [Prilosec Otc] 20 mg PO DAILY 01/03/20 [History] Rosuvastatin [Crestor] 2.5 mg PO ASDIRECTED 01/03/20 [History] Tolterodine [Detrol] 2 mg PO BID 01/03/20 [History] sitaGLIPtin Phosphate [Januvia] 50 mg PO DAILY 01/03/20 [History] Past Medical History HEENT History: Reports: Cataract Cardiovascular History: Reports: High Cholesterol, Hypertension Respiratory History: Reports: Asthma, Bronchitis, Recurrent, COPD Gastrointestinal History: Reports: Diverticulosis, Hemorrhoids, Hiatal Hernia Genitourinary History: Reports: Other (See Below) Other Genitourinary History: Status post microscopic hematuria. Bladder sling repair Neurological History: Reports: Migraines Psychiatric History: Reports: Anxiety Endocrine/Metabolic History: Reports: Diabetes, Type II, Obesity/BMI 30+ Hematologic History: Reports: None Immunologic History: Reports: None Oncologic (Cancer) History: Reports: None Other Dermatologic History: allergy to plastic tape - Infectious Disease History Infectious Disease History: Reports: Chicken Pox - Past Surgical History HEENT Surgical History: Reports: Tonsillectomy Other HEENT Surgeries/Procedures: closed reduction nasal fx. Cardiovascular Surgical History: Reports: None Respiratory Surgical History: Reports: None GI Surgical History: Reports: Appendectomy, Cholecystectomy Female Surgical History: Reports: Section, Other (See Below) Other Female Surgeries/Procedures: Cystoscopy Musculoskeletal Surgical History: Reports: Arthroscopic Knee, Shoulder Surgery Other Musculoskeletal Surgeries/Procedures:: Multiple joint surgical procedures. Breast Biopsy--Benign. shoulder rotator cuff x3 Social & Family History - Family History Family Medical History: No Pertinent Family History - Tobacco Use Tobacco Use Status *Q: Never Tobacco User Second Hand Smoke Exposure: No - Caffeine Use Caffeine Use: Reports: Soda Other Caffeine Use: one every other day - Recreational Drug Use Recreational Drug Use: No - Living Situation & Occupation Living situation: Reports: with Family Occupation: Employed ED ROS GENERAL - Review of Systems Review Of Systems: Comprehensive ROS is negative, except as noted in HPI. ED EXAM, UPPER BACK/NECK PAIN - Physical Exam Exam: See Below Exam Limited By: No Limitations General Appearance: Alert, Mild Distress, Obese Eye Exam: Bilateral Eye: EOMI, PERRL Ears Exam: Normal External Exam, Hearing Grossly Normal, Normal TMs Nose Exam: Normal Inspection Throat/Mouth Exam: Normal Inspection, Normal Oropharynx, Normal Voice, No Airway Compromise Head Exam: Atraumatic, Normocephalic, Scalp Tenderness (mid posterior parietal) Neck Exam: Painful Range of Motion, Paraspinous Muscle Tender, Tender Lateral. No: Spinous Processes Tender, Tender Midline Nexus Criteria: Altered Level of Consciousness, Focal Neurological Deficit. 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, No Motor/Sensory Deficits, Alert, Normal Mood/Affect, Oriented x 3 Psychiatric: Normal Affect Skin Exam: Normal Color Course - Vital Signs Last Recorded V/S: Last Vital Signs Temp 98.8 F 03/16/21 09:06 Pulse 89 03/16/21 09:06 Resp 18 03/16/21 09:06 BP 143/97 H 03/16/21 09:06 Pulse Ox 99 03/16/21 09:06 Departure - Departure Time of Disposition: 11:02 Disposition: Home, Self-Care 01 Condition: Good Clinical Impression: Muscle spasm Fall Qualifiers: Encounter type: initial encounter Qualified Code(s): W19.XXXA - Unspecified fall, initial encounter Back pain Qualifiers: Back pain location: low back pain Chronicity: acute Back pain laterality: bilateral Sciatica presence: without sciatica Qualified Code(s): M54.50 - Low back pain, unspecified Contusion of head Qualifiers: Encounter type: initial encounter Contusion of head detail: scalp Qualified Code(s): S00.03XA - Contusion of scalp, initial encounter - Discharge Information *PRESCRIPTION DRUG MONITORING PROGRAM REVIEWED*: Not Applicable *COPY OF PRESCRIPTION DRUG MONITORING REPORT IN PATIENT ISIDRA: Not Applicable Instructions: Muscle Cramps and Spasms, [id number], Contusion, [id number] Forms: ED Department Discharge Additional Instructions: alternate tylenol and ibuprofen every 4 hours as needed for discomfort flexeril 10mg one every 8 hours as needed for back spasm ice or heat to back light activity today clinic follow up recheck next week Sepsis Event Note (ED) - Evaluation Sepsis Screening Result: No Definite Risk - Focused Exam Vital Signs: Vital Signs Temp Pulse Resp BP Pulse Ox 03/16/21 09:06 98.8 F 89 18 143/97 H 99
== END 2021-03-16 11:30 | disposition home or self-care (01) ==
LOC: DL.ED 08:41
DX: S00.03XA Contusion of scalp, initial encounter (principal); M62.830 Muscle spasm of back; E78.00 Pure hypercholesterolemia, unspecified; I10 Essential (primary) hypertension; J44.9 Chronic obstructive pulmonary disease, unspecified; E11.9 Type 2 diabetes mellitus without complications; E66.9 Obesity, unspecified; Z68.41 Body mass index [BMI] 40.0-44.9, adult; Z88.0 Allergy status to penicillin; Z88.5 Allergy status to narcotic agent; Z91.040 Latex allergy status; Z88.1 Allergy status to other antibiotic agents; Z88.2 Allergy status to sulfonamides; Z88.8 Allergy status to other drugs, medicaments and biological substances; Z91.048 Other nonmedicinal substance allergy status; Z79.82 Long term (current) use of aspirin; Z79.84 Long term (current) use of oral hypoglycemic drugs; Z79.899 Other long term (current) drug therapy; W08.XXXA Fall from other furniture, initial encounter; Y92.89 Other specified places as the place of occurrence of the external cause; Y99.0 Civilian activity done for income or pay
CPT/HCPCS: 70450; 72125; 72131; 99283-25

== ENCOUNTER 2022-03-30 08:23 | Emergency (ER) | payer BC ==
[2022-03-30] MEDS ORDERED: Atropine/Diphenoxylate 0.025-2.5 MG Tab PO ONE (08:24)
[2022-03-30 08:56] VITALS: BP 145/75; PULSE 71
[2022-03-30] MEDS ORDERED: Acetaminophen/Codeine 300-30 MG Tab PO ONE (09:10)
[2022-03-30] MEDS ORDERED: Ondansetron 4 MG Tab.DIS PO ONE (09:10)
[2022-03-30 09:31] LABS: CORONAVIRUS COVID-19 NAA NEGATIVE (NEGATIVE); RESPIRATORY SYNCYTIAL VIR NAA NEGATIVE (NEGATIVE)
[2022-03-30] MEDS ORDERED: Atropine/Diphenoxylate 0.025-2.5 MG Tab ONE (10:19)
[2022-03-30] MEDS ORDERED: Doxycycline Monohydrate 100 MG Cap ONE (10:20)
[2022-03-30] MEDS ORDERED: Doxycycline Monohydrate 100 MG Cap PO ONE (10:28)
== END 2022-03-30 10:30 | disposition home or self-care (01) ==
LOC: DL.ED 08:23
DX: J01.90 Acute sinusitis, unspecified (principal); R19.7 Diarrhea, unspecified; E78.00 Pure hypercholesterolemia, unspecified; I10 Essential (primary) hypertension; E11.9 Type 2 diabetes mellitus without complications; E66.9 Obesity, unspecified; Z68.41 Body mass index [BMI] 40.0-44.9, adult; Z91.048 Other nonmedicinal substance allergy status; Z88.0 Allergy status to penicillin; Z91.013 Allergy to seafood; Z88.5 Allergy status to narcotic agent; Z91.040 Latex allergy status; Z88.2 Allergy status to sulfonamides; Z79.899 Other long term (current) drug therapy; Z79.84 Long term (current) use of oral hypoglycemic drugs; Z90.49 Acquired absence of other specified parts of digestive tract; Z20.822 Contact with and (suspected) exposure to COVID-19
CPT/HCPCS: 0241U; 36415; 71046; 80053; 83690; 85025; 99284; A9270

== ENCOUNTER 2022-08-10 21:57 | Emergency (ER) | payer BC ==
[2022-08-10] MEDS: traMADol 50 MG Tab PO ONE (23:08)
[2022-08-11] MEDS: traMADol 50 MG Tab PO ONE (00:17)
[2022-08-11 00:22] VITALS: BP 152/84; PULSE 74
== END 2022-08-11 00:26 | disposition home or self-care (01) ==
LOC: DL.ED 21:57
DX: S16.1XXA Strain of muscle, fascia and tendon at neck level, initial encounter (principal); S80.01XA Contusion of right knee, initial encounter; S00.83XA Contusion of other part of head, initial encounter; E78.00 Pure hypercholesterolemia, unspecified; I10 Essential (primary) hypertension; J44.9 Chronic obstructive pulmonary disease, unspecified; E11.9 Type 2 diabetes mellitus without complications; E66.9 Obesity, unspecified; Z68.41 Body mass index [BMI] 40.0-44.9, adult; Z86.16 Personal history of COVID-19; Z88.0 Allergy status to penicillin; Z91.013 Allergy to seafood; Z88.5 Allergy status to narcotic agent; Z91.040 Latex allergy status; Z88.1 Allergy status to other antibiotic agents; Z88.2 Allergy status to sulfonamides; Z88.8 Allergy status to other drugs, medicaments and biological substances; Z91.048 Other nonmedicinal substance allergy status; Z79.84 Long term (current) use of oral hypoglycemic drugs; Z79.899 Other long term (current) drug therapy; W01.0XXA Fall on same level from slipping, tripping and stumbling without subsequent striking against object, initial encounter; Y92.009 Unspecified place in unspecified non-institutional (private) residence as the place of occurrence of the external cause
CPT/HCPCS: 70486; 72125; 73562-RT; 99283; 99284; A9270-GY

== ENCOUNTER 2022-12-23 17:43 | Emergency (ER) | payer BC ==
[2022-12-23 18:24] VITALS: BP 145/77; PULSE 83
[2022-12-23 19:43] LABS: BASOPHILS PERCENT AUTO 0.4 % (0.0-1.0); EOSINOPHILS PERCENT AUTO 4.2 % (1.0-3.0); HEMATOCRIT 41.3 % (37.0-47.0); HEMOGLOBIN 13.5 g/dL (12.0-16.0); LYMPHOCYTES PERCENT AUTO 28.9 % (20.5-50.1); MEAN CORPUSCULAR HEMOGLOBIN 30.6 pg (27.0-34.0); MEAN CORPUSCULAR HGB CONC 32.7 g/dL (33.0-35.0); MEAN CORPUSCULAR VOLUME 93.7 fL (80-100); MONOCYTES PERCENT AUTO 7.8 % (2-8); NEUTROPHILS PERCENT AUTO 58.7 % (42.2-75.2); PLATELET COUNT,PLT 166 10^3/uL (150-450); RED BLOOD CELL COUNT 4.41 10^6/uL (4.2-5.4); WHITE BLOOD CELL COUNT,WBC 5.5 10^3/uL (5.0-10.0)
[2022-12-23 19:47] LABS: APPEARANCE,URINE CLEAR (CLEAR); BILIRUBIN,URINE NEGATIVE (NEGATIVE); COLOR,URINE YELLOW (YELLOW); GLUCOSE,URINE 500 (NEGATIVE); KETONES,URINE NEGATIVE (NEGATIVE); LEUKOCYTE ESTERASE,URINE NEGATIVE (NEGATIVE); NITRITE,URINE NEGATIVE (NEGATIVE); OCCULT BLOOD,URINE TRACE-INTACT (NEGATIVE); PH,URINE 5.5 (5.0-9.0); PROTEIN,URINE NEGATIVE (NEGATIVE); UROBILINOGEN,URINE 0.2 mg/dL (0.2-1.0)
[2022-12-23 19:55] LABS: WBC,URINE NOT SEEN /HPF (0-5/HPF)
[2022-12-23 19:56] LABS: BACTERIA,URINE OCCASIONAL /HPF (0-FEW/HPF); EPITHELIAL CELLS,URINE FEW /HPF (NOT SEEN); RBC,URINE 0-5 /HPF (0-5)
[2022-12-23 19:58] LABS: INR 0.9 (0.9-1.2); LACTIC ACID 0.9 mmol/L (0.4-2.0); PROTHROMBIN TIME 9.7 SEC (9.0-12.0)
[2022-12-23 20:04] LABS: A/G RATIO 1.1; ALANINE AMINOTRANSFERASE,ALT 30 U/L (14-59); ALBUMIN 3.6 g/dL (3.4-5.0); ALKALINE PHOSPHATASE 62 U/L (46-116); ANION GAP 11.1 mEq/L (7-13); ASPARTATE AMNIOTRANSFERASE,AST 28 U/L (15-37); BILIRUBIN TOTAL 0.6 mg/dL (0.2-1.0); BLOOD UREA NITROGEN,BUN 18 mg/dL (7-18); BUN/CREATININE RATIO 19.4 (No establ ref range); C-REACTIVE PROTEIN < 0.2 mg/dL (0.0-0.9); CALCIUM 9.3 mg/dL (8.5-10.1); CARBON DIOXIDE,CO2 31 mmol/L (21-32); CHLORIDE,CL 103 mmol/L (98-107); CREATININE 0.93 mg/dL (0.55-1.02); EST CRCL DRUG DOSING (CG) 56.94 mL/min; ESTIMATED GFR 71 mL/min (>=60); GLUCOSE RANDOM 130 mg/dL (70-99); LIPASE 147 U/L (73-393); POTASSIUM,K 4.1 mmol/L (3.5-5.1); SODIUM,NA 141 mmol/L (136-145)
[2022-12-23 20:06] LABS: B-TYPE NATRIURETIC PEPTIDE,BNP 9 pg/ml (0-100)
[2022-12-23 20:12] LABS: D-DIMER QUANTITATIVE < 100 ng/mL (0-400)
[2022-12-23] MEDS ORDERED: Sodium Chloride 0.9% 1,000 ML IV ONE (20:30)
[2022-12-23] MEDS ORDERED: Ondansetron 4 MG/2 ML SDV IVPUSH ONE (20:30)
[2022-12-23] MEDS ORDERED: Ketorolac 30 MG/ML SDV IVPUSH ONE (20:30)
[2022-12-23] MEDS ORDERED: Iopamidol 755 Mg/ML 100 ML Bottle IVPUSH ONE (22:38)
== END 2022-12-24 00:30 | disposition home or self-care (01) ==
LOC: DL.ED 17:43
DX: R07.9 Chest pain, unspecified (principal); R51.9 Headache, unspecified; T50.995A Adverse effect of other drugs, medicaments and biological substances, initial encounter; R60.0 Localized edema; I10 Essential (primary) hypertension; E78.00 Pure hypercholesterolemia, unspecified; J44.9 Chronic obstructive pulmonary disease, unspecified; E11.9 Type 2 diabetes mellitus without complications; E66.9 Obesity, unspecified; Z86.16 Personal history of COVID-19; Z88.8 Allergy status to other drugs, medicaments and biological substances; Z88.2 Allergy status to sulfonamides; Z91.048 Other nonmedicinal substance allergy status; Z88.0 Allergy status to penicillin; Z91.030 Bee allergy status; Z88.5 Allergy status to narcotic agent; Z91.040 Latex allergy status; Z88.1 Allergy status to other antibiotic agents; Z79.899 Other long term (current) drug therapy; Z20.822 Contact with and (suspected) exposure to COVID-19
CPT/HCPCS: 36415; 71045; 71275; 80053; 81001; 83605; 83690; 83880; 84145; 84484; 85025; 85379; 85610; 85730; 86140; 87635; 87804; 93005; 96374; 96375; 99285; J1885; J2405; J7030; Q9967; U0002

== ENCOUNTER 2022-12-28 14:19 | Emergency (ER) | payer BC ==
[2022-12-28] MEDS ORDERED: Sodium Chloride 0.9% 10 ML Syringe FLUSH PRN (14:39)
[2022-12-28] MEDS ORDERED: EPINEPHrine 1 MG/ML SDV SUBCUT ONE (14:39)
[2022-12-28] MEDS ORDERED: diphenhydrAMINE 50 MG/ML SDV IVPUSH ONE (14:39)
[2022-12-28 15:01] VITALS: BP 139/77; PULSE 88
== END 2022-12-28 16:13 | disposition home or self-care (01) ==
LOC: DL.ED 14:19
DX: T78.40XA Allergy, unspecified, initial encounter (principal); E78.00 Pure hypercholesterolemia, unspecified; J44.9 Chronic obstructive pulmonary disease, unspecified; I12.9 Hypertensive chronic kidney disease with stage 1 through stage 4 chronic kidney disease, or unspecified chronic kidney disease; E11.22 Type 2 diabetes mellitus with diabetic chronic kidney disease; N18.9 Chronic kidney disease, unspecified; E66.9 Obesity, unspecified; Z68.42 Body mass index [BMI] 45.0-49.9, adult; Z86.16 Personal history of COVID-19; Z88.8 Allergy status to other drugs, medicaments and biological substances; Z88.2 Allergy status to sulfonamides; Z88.0 Allergy status to penicillin; Z91.013 Allergy to seafood; Z88.5 Allergy status to narcotic agent; Z91.048 Other nonmedicinal substance allergy status; Z91.040 Latex allergy status; Z88.1 Allergy status to other antibiotic agents; Z79.899 Other long term (current) drug therapy; Z79.84 Long term (current) use of oral hypoglycemic drugs
CPT/HCPCS: 96372; 96374; 99283; J0171; J1200; J3490

== ENCOUNTER 2023-04-19 00:21 | Emergency (ER) | payer BC ==
[2023-04-19] MEDS ORDERED: Sodium Chloride 0.9% 10 ML Syringe FLUSH PRN (00:37)
[2023-04-19 00:57] LABS: BASOPHILS PERCENT AUTO 0.3 % (0.0-1.0); EOSINOPHILS PERCENT AUTO 4.5 % (1.0-3.0); HEMOGLOBIN 13.1 g/dL (12.0-16.0); LYMPHOCYTES PERCENT AUTO 30.4 % (20.5-50.1); MEAN CORPUSCULAR HEMOGLOBIN 30.3 pg (27.0-34.0); MEAN CORPUSCULAR HGB CONC 32.8 g/dL (33.0-35.0); MEAN CORPUSCULAR VOLUME 92.4 fL (80-100); MONOCYTES PERCENT AUTO 8.3 % (2-8); NEUTROPHILS PERCENT AUTO 56.5 % (42.2-75.2); PLATELET COUNT,PLT 179 10^3/uL (150-450); RED BLOOD CELL COUNT 4.33 10^6/uL (4.2-5.4); WHITE BLOOD CELL COUNT,WBC 6.3 10^3/uL (5.0-10.0)
[2023-04-19 01:10] LABS: ALBUMIN 3.6 g/dL (3.4-5.0); ANION GAP 15.6 mEq/L (7-13); BILIRUBIN TOTAL 0.4 mg/dL (0.2-1.0); BUN/CREATININE RATIO 23.8 (No establ ref range); CREATININE 1.05 mg/dL (0.55-1.02); EST CRCL DRUG DOSING (CG) 50.43 mL/min; POTASSIUM,K 4.6 mmol/L (3.5-5.1); PROTEIN TOTAL,TP 7.1 g/dL (6.4-8.2)
[2023-04-19 01:11] LABS: LACTIC ACID 0.8 mmol/L (0.4-2.0)
[2023-04-19 01:58] LABS: CORONAVIRUS COVID-19 NAA NEGATIVE (NEGATIVE); INFLUENZA A NAA NEGATIVE (NEGATIVE); INFLUENZA B NAA NEGATIVE (NEGATIVE)
[2023-04-19 02:52] LABS: APPEARANCE,URINE CLEAR (CLEAR); BILIRUBIN,URINE NEGATIVE (NEGATIVE); COLOR,URINE YELLOW (YELLOW); GLUCOSE,URINE 500 (NEGATIVE); KETONES,URINE NEGATIVE (NEGATIVE); LEUKOCYTE ESTERASE,URINE TRACE (NEGATIVE); NITRITE,URINE NEGATIVE (NEGATIVE); OCCULT BLOOD,URINE NEGATIVE (NEGATIVE); PH,URINE 5.5 (5.0-9.0); PROTEIN,URINE NEGATIVE (NEGATIVE); UROBILINOGEN,URINE 0.2 mg/dL (0.2-1.0)
[2023-04-19 02:56] VITALS: BP 152/66; PULSE 66
[2023-04-19 03:00] LABS: BACTERIA,URINE FEW /HPF (0-FEW/HPF); EPITHELIAL CELLS,URINE FEW /HPF (NOT SEEN); RBC,URINE 0-5 /HPF (0-5)
== END 2023-04-19 03:07 | disposition home or self-care (01) ==
LOC: DL.ED 00:21
DX: R07.89 Other chest pain (principal); E78.00 Pure hypercholesterolemia, unspecified; I10 Essential (primary) hypertension; J44.9 Chronic obstructive pulmonary disease, unspecified; E11.9 Type 2 diabetes mellitus without complications; E66.9 Obesity, unspecified; Z68.42 Body mass index [BMI] 45.0-49.9, adult; Z86.16 Personal history of COVID-19; Z20.822 Contact with and (suspected) exposure to COVID-19; Z90.49 Acquired absence of other specified parts of digestive tract; Z79.84 Long term (current) use of oral hypoglycemic drugs; Z88.2 Allergy status to sulfonamides; Z88.0 Allergy status to penicillin; Z91.013 Allergy to seafood; Z88.5 Allergy status to narcotic agent; Z91.040 Latex allergy status; Z88.1 Allergy status to other antibiotic agents; Z91.048 Other nonmedicinal substance allergy status; Z79.899 Other long term (current) drug therapy; Z88.8 Allergy status to other drugs, medicaments and biological substances
CPT/HCPCS: 0240U; 36415; 71045; 80053; 81001; 83605; 84484; 85025; 87086; 93005; 99285; J3490

== ENCOUNTER 2023-08-06 17:51 | Emergency (ER) | payer OTHER, BC ==
[2023-08-06 18:24] VITALS: BP 142/80; PULSE 80
[2023-08-06] MEDS ORDERED: oxyCODONE 5 MG Tab PO ONE (18:56)
[2023-08-06] MEDS ORDERED: traMADol 50 MG Tab PO ONE (19:22)
== END 2023-08-06 19:33 | disposition home or self-care (01) ==
LOC: DL.ED 17:51
DX: M54.12 Radiculopathy, cervical region (principal); Z88.8 Allergy status to other drugs, medicaments and biological substances; Z88.2 Allergy status to sulfonamides; Z91.013 Allergy to seafood; Z88.6 Allergy status to analgesic agent; Z91.040 Latex allergy status; Z88.5 Allergy status to narcotic agent; Z91.048 Other nonmedicinal substance allergy status; Z88.1 Allergy status to other antibiotic agents; Z79.84 Long term (current) use of oral hypoglycemic drugs; Z79.899 Other long term (current) drug therapy; E78.00 Pure hypercholesterolemia, unspecified; I10 Essential (primary) hypertension; J44.89 Other specified chronic obstructive pulmonary disease; E11.9 Type 2 diabetes mellitus without complications; E66.9 Obesity, unspecified; Z86.19 Personal history of other infectious and parasitic diseases; Z86.16 Personal history of COVID-19; Z90.49 Acquired absence of other specified parts of digestive tract; Z79.51 Long term (current) use of inhaled steroids; Z68.42 Body mass index [BMI] 45.0-49.9, adult
CPT/HCPCS: 70450; 72125; 99283